=== PATIENT | female | born 1990 | race African-American/Black ===

== ENCOUNTER → 2017-11-11 | Outpatient (CLI) | payer OTHER ==
[2017-11-11 19:24] LABS: Hepatitis C IgG Antibody Non-Reactive (Non-Reactive)
[2017-11-11 20:11] LABS: HIV AB P24 Non-Reactive (Non-Reactive); HIV P24 AG Non-Reactive (Non-Reactive)
== END | disposition home or self-care (01) ==
LOC: LABWHC1 12:31
PROVIDERS: ATTEND Obstetrics & Gynecology
DX: Z11.3 Encounter for screening for infections with a predominantly sexual mode of transmission (principal)
CPT/HCPCS: 36415; 86780; 86803; 87340; 87390

== ENCOUNTER → 2018-07-22 | Outpatient (CLI) | payer OTHER ==
--- NOTE | 2018-07-22 17:23 | MR ---
EXAMINATION TYPE: MR amy/lspine wo con DATE OF EXAM: 07/22/2018 COMPARISON: Cervical spine 09/11/2017 HISTORY: 28-year-old female, neck pain, Cervicalgia /Low back pain TECHNIQUE: Multiplanar, multisequence images of the cervical follow-up of the lumbar spine were obtai haris without IV contrast. FINDINGS: CERVICAL SPINE: Postsurgical changes redemonstrated of occipital decompression for urinary malformation. No tonsillar herniation is seen. Negative predental space widening or prevertebral soft tissue swelling. Straightening of the normal cervical lordosis redemonstrated with variable mild intervertebral disc d esiccation is seen previously. No large focal disc herniation. Scattered mild facet arthropathy is present. No significant spinal canal or neuroforaminal stenosis. Evaluation of the spinal cord demonstrates syrinx with abnormal signal in both hemicords extending fr om the cervical medullary junction down through the visualized thoracic the spinal cord. LUMBAR SPINE: The pet care technician image shows mild reversed S-shaped undulation of the thoracolumbar spine. Vertebral body heights are preserved. Alignment is maintained. No suspicious bone marrow replacement. Conus medullaris terminates at the lower limits of normal at L2-L3. Syrinx terminates at the T11 leve l. Minimal bulging disks throughout the lumbar spine. No significant spinal canal or neural foraminal st enosis. Some of the bulging discs encroach into the inferior aspects of the neuroforamen such as the L4-L5 levels. COMBINED IMPRESSION: CERVICAL SPINE: 1. STABLE POST SURGICAL CHANGES OF OCCIPITAL DECOMPRESSION AND LONG SEGMENT, UNIFORM SYRINX EXTENDING FROM THE CERVICOMEDULLARY JUNCTION DOWN THROUGH THE VISUALIZED THORACIC SPINAL CORD. 2. SIMILAR EARLY DEGENERATIVE DISC DESICCATION. NO SPINAL CANAL OR NEUROFORAMINAL STENOSIS. LUMBAR SPINE: 1. SCATTERED MILD BULGING DISCS. THESE MINIMALLY ENCROACH ONTO THE INFERIOR ASPECT OF THE NEUROFORAME N AT L4-L5 AND L5-S1. NO SIGNIFICANT SPINAL CANAL OR FORAMINAL STENOSIS. 2. SYRINX TERMINATES AT THE T11 LEVEL. CONUS MEDULLARIS IS INCIDENTALLY NOTED TO BE LOW LYING AT L2-L 3.
== END | disposition home or self-care (01) ==
LOC: RADMRIMAIN 10:45
PROVIDERS: ATTEND Psychiatry & Neurology Neurology
DX: M50.80 Other cervical disc disorders, unspecified cervical region (principal); M51.26 Other intervertebral disc displacement, lumbar region; Z98.890 Other specified postprocedural states
CPT/HCPCS: 72141; 72148

== ENCOUNTER → 2018-11-16 | Outpatient (CLI) | payer OTHER ==
[2018-11-16 11:53] VITALS: BP 96/59; PULSE 88; RESP 20; TEMP 96.7; BMI 27.9
--- NOTE | 2018-11-16 12:35 | P.HPOB ---
History of Present Illness H&P Date: 11/16/18 Chief Complaint: The patient is here for her routine gynecologic exam. This is a 28-year-old with an LMP of 11/06/18. The patient has been on TriSprintec for control and states she has done well with these control pills. Her prescription ran out 1 week ago. She states she has not been sexually active for the last 6 months. She has only had one sexual partner during the past year. She is requesting STD screening. She is without gynecologic complaints. Review of Systems The patient's net weight has been stable over the last year. She did lose some weight but has gained it back. She denies respiratory, cardiac, or G.I. problems. : she states she has been urinating fairly frequently but attributes this to increase water intake. She denies urinary urgency or dysuria. Past Medical History Past Medical History: No Reported History, Asthma (Childhood asthma only.) Additional Past Medical History / Comment(s): migraines. Chronic neck and back problems. 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 She has no other history of STDs. One PROM delivery at 27wk 2008 History of Any Multi-Drug Resistant Organisms: None Reported Additional Past Surgical History / Comment(s): Neck/spine surgery with fluid removed 2009. 2 VTPs. Past Psychological History: No Psychological Hx Reported Smoking Status: Light tobacco smoker (Infrequently) Past Alcohol Use History: Occasional (3 per month) Past Drug Use History: None Reported Additional History: She is single and is not seeing anybody at this time. She is currently unemployed. - Past Family History Mother Family Medical History: Liver Disease (Cirrhosis related to alcohol use.) Medications and Allergies Home Medications Medication Instructions Recorded Confirmed Type Naproxen 500 mg PO Q6H PRN 06/11/18 11/16/18 History Norgestimate-Ethinyl Estradiol 1 tab PO DAILY 06/11/18 11/16/18 History [Tri-Sprintec Tablet] Topiramate [Topamax] 50 mg PO BID 11/16/18 11/16/18 History Allergies Allergy/AdvReac Type Severity Reaction Status Date / Time No Known Allergies Allergy Verified 11/16/18 11:31 Exam Vital Signs Temp Pulse Resp BP Pulse Ox 11/16/18 11:34 96.7 F L 88 20 96/59 100 Intake and Output 11/15/18 11/16/18 11/16/18 22:59 06:59 14:59 Other: Weight 67.132 kg Height 5'1", weight 148 pounds, BMI 28.0. This is a well-developed well-nourished black female who is alert and oriented times 3 in no acute distress. HEENT: Within normal limits. NECK: Supple without mass or thyromegaly. CHEST AND LUNGS: Clear to auscultation. HEART: Regular rate and rhythm. BREASTS: Are without mass or discharge. AXILLARY EXAM: Negative for adenopathy. BACK: Negative for CVA tenderness. ABDOMEN: Soft, nontender, without palpable masses. PELVIC EXAM: Normal external genitalia. Cervix and vagina appear normal. There is no unusual discharge. There is no evidence of prolapse. The uterus is midposition, nongravid size and nontender. There are no palpable adnexal masses or tenderness. RECTAL EXAM: negative for mass or tenderness. EXTREMITIES: Nontender. IMPRESSION: 1. 28 year old female with normal gynecologic exam, who has been doing well with oral contraception. 2. The patient is requesting STD screening. PLAN: 1. Pap smear was deferred since she had a normal one on 11/11/2017. 2. Self breast awareness was discussed with the patient. 3. GC and Chlamydia testing was obtained from the cervix. Blood testing will include HIV, RPR, hepatitis B surface antigen, and hepatitis C antibody. This will be drawn today. 4. STD prevention was discussed. I stressed the importance of limiting sexual partners we discussed condom use if she is sexually active. 5. She will resume her Tri-Sprintec in this will be restarted on the Thursday following the onset of her next normal menstrual period. She will use condoms at least through the 1st pack of pills. 6. She will return in one year.
[2018-11-16 20:10] LABS: Hepatitis C IgG Antibody Non-Reactive (Non-Reactive)
[2018-11-16 20:20] LABS: HIV 1 AB Non-Reactive (Non-Reactive); HIV AB P24 Non-Reactive (Non-Reactive); HIV P24 AG Non-Reactive (Non-Reactive)
[2018-11-17 12:42] LABS: C. trachomatis,PCR Negative (Neg,Equiv); Chlamydia trachomatis Source Cervix; N. gonorrhoeae,PCR Negative (Neg,Equiv); Neisseria Source Cervix
== END | disposition home or self-care (01) ==
LOC: WWCWWP 10:47
PROVIDERS: ATTEND Obstetrics & Gynecology
DX: Z11.3 Encounter for screening for infections with a predominantly sexual mode of transmission (principal)
CPT/HCPCS: 36415; 86780; 86803; 87340; 87390; 87491; 87591

== ENCOUNTER → 2019-03-25 | Outpatient (CLI) | payer OTHER ==
--- NOTE | 2019-03-25 14:58 | CT ---
EXAMINATION TYPE: CT abdomen pelvis w con DATE OF EXAM: 03/25/2019 COMPARISON: MR MRI 07/22/2018 HISTORY: Rosa Maria aortic mass seen on MRI. CT DLP: 1184 mGycm Automated exposure control for dose reduction was used. TECHNIQUE: Helical acquisition of images from the lung bases through the pelvis have been completed. CONTRAST: Performed with Oral Contrast and with IV Contrast, patient injected with 100 mL of Isovue M300. FINDINGS: LUNG BASES: No significant abnormality is appreciated. AORTA: No significant abnormality is appreciated. LIVER/GB: No significant abnormality is appreciated. PANCREAS: No significant abnormality is seen. SPLEEN: No significant abnormality is seen. ADRENALS: Left adrenal gland shows a low dense mass as noted on prior MRI measuring approximately 2.8 cm in AP dimension. KIDNEYS: No significant abnormality is seen. REPRODUCTIVE ORGANS: No significant abnormality is seen BOWEL: No significant abnormality is seen. Normal FREE AIR: No Free Air visible. ASCITES: None visible. PELVIC ADENOPATHY: None visualized. RETROPERITONEAL ADENOPATHY: No Retroperitoneal Adenopathy visible. URINARY BLADDER: No significant abnormality is seen. OSSEOUS STRUCTURES: No significant abnormality is seen. IMPRESSION: PROBABLE LEFT ADRENAL ADENOMA. MRI ABDOMEN COULD BE PERFORMED FOR ADDITIONAL EVALUATION OR ALTERNATIV SALOME INTERVAL FOLLOW-UP COULD BE PERFORMED TO ASSESS FOR STABILITY.
== END | disposition home or self-care (01) ==
LOC: RADCTMAIN 12:40
PROVIDERS: ATTEND Internal Medicine
DX: R19.09 Other intra-abdominal and pelvic swelling, mass and lump (principal)
CPT/HCPCS: 74177; Q9967

== ENCOUNTER → 2019-05-02 | Outpatient (CLI) | payer OTHER ==
--- NOTE | 2019-05-02 12:18 | MR ---
MR abdomen with and without contrast or graph history: Left adrenal mass Multiplanar multisequence and postcontrast images through the abdomen following 7 cc Gadavist IV. Correlation to CT scan dated 03/25/2019 The left adrenal mass measures approximately 2.9 cm in greatest AP dimension, there is signal drop on out of phase imaging. The right adrenal gland is unremarkable. There is no retroperitoneal adenopath y. Aorta shows normal caliber. The left adrenal mass does not avidly enhance following contrast administration. Liver as visualized, gallbladder, spleen, pancreas are unremarkable. Lung bases are clear. IMPRESSION: Findings most compatible with left adrenal adenoma.
== END | disposition home or self-care (01) ==
LOC: RADMRIMAIN 10:39
PROVIDERS: ATTEND Internal Medicine
DX: E27.9 Disorder of adrenal gland, unspecified (principal)
CPT/HCPCS: 74183; A9585

== ENCOUNTER → 2019-11-01 | Outpatient (CLI) | payer OTHER ==
[2019-11-01 08:43] VITALS: BP 95/62; PULSE 89; RESP 16; TEMP 98.4
--- NOTE | 2019-11-01 09:54 | P.HPOB ---
History of Present Illness H&P Date: 11/01/19 Chief Complaint: The patient is here for her routine gynecologic exam and recent pain This is a 29-year-old with an LMP of 10/27/2019. She states she had an appointment for her yearly exam today but developed abdominal pain yesterday morning. She states she had not been sexually active for the entire year until about 2-3 weeks ago when she had sex with somebody. She states they did use a condom but it broke. She states she does not think she is since she had a period last week. She states the abdominal pain is sharp and fairly constant. It is greatest when she is walking and not very bothersome when she is sitting still. She denies fever or abnormal discharge. She denies nausea or vomiting. Review of Systems The patient has gained 8 pounds over the last year. She denies respiratory, cardiac, or G.I. problems. She has had abdominal pain as above in the HPI. She denies urinary tract infection symptoms. Past Medical History Past Medical History: No Reported History, Asthma Additional Past Medical History / Comment(s): migraines. Chronic neck and back problems. Past [employer] history: She had trichomonas in the past which was treated. She has no other history of STDs. One PROM delivery at 27wk 2008 History of Any Multi-Drug Resistant Organisms: None Reported Additional Past Surgical History / Comment(s): Neck/spine surgery with fluid removed 2009. 2 VTPs. Past Psychological History: No Psychological Hx Reported Smoking Status: Light tobacco smoker (2 per week) Past Alcohol Use History: Occasional (2 per week) Past Drug Use History: None Reported Additional History: She is single and is not seeing anybody at this time. She is currently unemployed. - Past Family History Mother Family Medical History: Liver Disease Additional Family Medical History / Comment(s): Cirrhosis of the liver related to alcohol use. Medications and Allergies Home Medications Medication Instructions Recorded Confirmed Type Naproxen 500 mg PO Q6H PRN 06/11/18 11/01/19 History Norgestimate-Ethinyl Estradiol 1 tab PO DAILY #84 tablet 11/16/18 11/01/19 Rx [Tri-Sprintec Tablet] Topiramate [Topamax] 50 mg PO BID 11/16/18 11/01/19 History Allergies Allergy/AdvReac Type Severity Reaction Status Date / Time No Known Allergies Allergy Verified 11/01/19 08:44 Exam Vital Signs Temp Pulse Resp BP Pulse Ox 11/01/19 08:35 98.4 F 89 16 95/62 99 Intake and Output 10/31/19 11/01/19 11/01/19 22:59 06:59 14:59 Other: Weight 70.76 kg Height 5 feet 1 inch, weight 156 pounds, BMI 29.5. This is a well-developed well-nourished black female who is alert and oriented times 3 in no acute distress. HEENT: Within normal limits. NECK: Supple without mass or thyromegaly. CHEST AND LUNGS: Clear to auscultation. HEART: Regular rate and rhythm. BREASTS: Are without mass or discharge. AXILLARY EXAM: Negative for adenopathy. BACK: Negative for CVA tenderness. ABDOMEN: Soft, there is mild to moderate generalized abdominal tenderness in both upper and lower quadrants. There is no rebound tenderness. There are 2+ bowel sounds. The abdomen is mildly distended. There are no palpable masses. PELVIC EXAM: Normal external genitalia. Cervix and vagina appear normal with mild to moderate creamy discharge with slight odor. There is positive cervical motion tenderness. There is no evidence of prolapse. The uterus is midposition, nongravid size and moderately tender. There are no palpable adnexal masses, but bilateral moderate tenderness. RECTAL EXAM: Deferred. EXTREMITIES: Nontender. IMPRESSION: 1. 29-year-old female with suspected pelvic inflammatory disease. This is based on her clinical history including new sexual partner, abdominal pain, vaginal discharge, and cervical motion tenderness. 2. Two day history of abdominal pain probably related to pelvic inflammatory disease. PLAN: 1. Pap smear was performed. 2. Self breast awareness was discussed with the patient. 3. GC and Chlamydia testing was obtained from the cervix. Trichomonas antigen testing was obtained from the discharge. 4. Blood tests will include CBC, hCG, HIV, RPR, hepatitis B surface antigen, and hepatitis C antibody. 5. We have discussed the option of inpatient treatment versus outpatient treatment. We have decided to proceed with outpatient treatment with close follow-up. She understands that if she is having increasing symptoms or problems she is to go to the emergency room for evaluation and possible admission to the hospital. Ceftriaxone 250 mg IM 1 today. This will be done at the [facility] on the third floor. Doxycycline 100 mg twice a day 14 days. The electronic prescription will be sent to [facility] pharmacy at [facility]. 6. STD prevention was discussed. I have stressed the importance of limiting sexual partners and to use condoms if she is sexually active. 7. I have made an appointment with her for a follow-up in 3 days on 11/04/2019 at 8:30 AM. 8. She will continue Tri-Sprintec for control. The electronic prescription will be sent to [facility] pharmacy.
[2019-11-01 10:01] LABS: Basophils % (A) 0 %; Eosinophils # (A) 0.2 k/uL (0-0.7); Eosinophils % (A) 1 %; HCT 38.9 % (34.0-46.0); HGB 12.3 gm/dL (11.4-16.0); Lymphocytes # (A) 1.2 k/uL (1.0-4.8); Lymphocytes % (A) 8 %; MCHC 31.6 g/dL (31.0-37.0); MCV 88.7 fL (80.0-100.0); Monocytes # (A) 0.4 k/uL (0-1.0); Monocytes % (A) 3 %; Neutrophils # (A) 13.5 k/uL (1.3-7.7); Neutrophils % (A) 87 %; Platelet Count 275 k/uL (150-450); RBC 4.38 m/uL (3.80-5.40); RDW 13.5 % (11.5-15.5); WBC 15.4 k/uL (3.8-10.6)
[2019-11-01 18:30] LABS: HIV 1 AB Non-Reactive (Non-Reactive); HIV 2 AB Non-Reactive (Non-Reactive); HIV AB P24 Non-Reactive (Non-Reactive); HIV P24 AG Non-Reactive (Non-Reactive)
[2019-11-01 18:52] LABS: Hepatitis B Surface Antigen Non-Reactive (Non-Reactive); Hepatitis C IgG Antibody Non-Reactive (Non-Reactive)
--- NOTE | 2019-11-02 09:34 | P.PN ---
Progress Note - Text Progress Note Date: 11/02/19 OUTPATIENT FOLLOW-UP NOTE TEST(S)/RESULTS: Test results from 11/01/2019 include negative hCG, negative syphilis screen, negative hepatitis be screen, negative hepatitis C screen, negative Trichomonas, and negative HIV testing. White blood cell count was 15.4 with an elevated neutrophil count. Hemoglobin was 12.3. METHOD OF NOTIFICATION: The patient was notified by phone. PATIENT COMMENTS: The patient states she is feeling somewhat better with less abdominal pain. DIAGNOSIS: Pelvic inflammatory disease with improving symptoms. DISCUSSION: GC and chlamydia testing are pending. PLAN: The patient has a follow-up appointment in 2 days for reevaluation.
[2019-11-03 15:02] LABS: C. trachomatis,PCR Negative (Neg,Equiv); Chlamydia trachomatis Source Cervix; N. gonorrhoeae,PCR Positive (Neg,Equiv); Neisseria Source Cervix
== END | disposition home or self-care (01) ==
LOC: WWCWWP 08:24
PROVIDERS: ATTEND Obstetrics & Gynecology
DX: Z11.3 Encounter for screening for infections with a predominantly sexual mode of transmission (principal); N89.8 Other specified noninflammatory disorders of vagina; R10.84 Generalized abdominal pain; N73.9 Female pelvic inflammatory disease, unspecified
CPT/HCPCS: 36415; 84702; 85025; 86780; 86803; 87340; 87390; 87491; 87591; 87808

== ENCOUNTER → 2019-11-01 | Outpatient (CLI) | payer OTHER ==
[~2019-11-01] MED LIST: cefTRIAXone 250 MG VIAL IM NR
[2019-11-01 10:06] VITALS: BP 105/68; PULSE 84; RESP 16; TEMP 97.8
== END | disposition home or self-care (01) ==
LOC: PROCWHC3 09:52
PROVIDERS: ATTEND Obstetrics & Gynecology
DX: N73.9 Female pelvic inflammatory disease, unspecified (principal)
CPT/HCPCS: 96372; J0696

== ENCOUNTER → 2019-11-04 | Outpatient (CLI) | payer OTHER ==
[2019-11-04 08:52] VITALS: BP 104/68; PULSE 70; RESP 16; TEMP 98.3
--- NOTE | 2019-11-04 09:41 | P.PN ---
Progress Note - Text Progress Note Date: 11/04/19 Chief Complaint: Follow-up for pelvic inflammatory disease diagnosed 3 days ago. HPI: This is a 29-year-old with an LMP of 10/27/2019. The patient was seen on 11/01/2019 with acute abdominal and pelvic pain. The patient was diagnosed with pelvic inflammatory disease. She was treated as an outpatient with ceftriaxone and oral doxycycline. She states within 1 day of the initiation of her treatment she was noticing improvement. The pain has continued to decrease and she states she is now pain-free. She did not ever have fever and is tolerating the antibiotics well without side effects. She is no longer with the sexual partner she had about 1 month ago. She states she has notified him that she had a pelvic infection. ROS: She denies fever, respiratory, cardiac, or GI problems. PE: Blood pressure: 104/68, Height: 5 feet 1 inch, Weight: 156 pounds, Temperature: 98.3, Pulse: 70. Pulse oximeter 100%. This is a well developed, well nourished, Black female who is alert and orientedx3, in no acute distress. Abdomen: Soft, nontender without palpable masses. Pelvic exam: Bimanual examination is negative for cervical motion tenderness. The uterus is nongravid size and nontender. There are no palpable adnexal masses or tenderness. Additional studies: White blood cell count was 15.4 with increased neutrophils. HCG was negative. HIV, hepatitis B surface antigen, hepatitis C antibody, and syphilis screening tests were all negative. Trichomonas and chlamydia testing were negative. The patient tested positive for gonorrhea. Impression: 1. Gonorrhea associated pelvic inflammatory disease with significant clinical improvement within 3 days after treatment initiated. Plan: 1. The patient was given ceftriaxone 250 mg IM on 11/01/2019. She was also started on doxycycline 100 mg by mouth twice a day 14 days. She will complete the oral doxycycline. 2. She was instructed to call if she has any problems including fever worsening abdominal pain or problems. 3. I have stressed the importance of protecting herself from sexual transmitted infections and diseases. I have stressed the importance of limiting sexual partners and using condoms if she is sexually active. 4. She states she will notify the sexual partner that she had the encounter with 1 month ago about the diagnosis of gonorrhea. He will be made aware that he needs to be treated for this. 5. She will return in approximately 4 months for retesting for gonorrhea. We will also repeat STD blood testing at that time. Time spent with the patient: 20 minutes
== END | disposition home or self-care (01) ==
LOC: WWCWWP 08:20
PROVIDERS: ATTEND Obstetrics & Gynecology
DX: Z53.9 Procedure and treatment not carried out, unspecified reason (principal)

== ENCOUNTER → 2020-04-03 | Outpatient (CLI) | payer OTHER ==
[2020-04-03 10:30] VITALS: BP 108/71; PULSE 85; RESP 18; TEMP 98.3
--- NOTE | 2020-04-03 11:35 | P.PN ---
Progress Note - Text Progress Note Date: 04/03/20 Chief Complaint: The patient is returning for her recheck following being treated for gonorrhea and PID about 5 months ago. HPI: This is a 30-year-old with an LMP of 03/20/2020. She is on Tri- Sprintec for control. She was treated for PID and gonorrhea on 11/01/2019. She clinically improved rapidly at that time. She has not been sexually active with the person that she believes gave her the gonorrhea and has not seen him since. She states she is only been sexually active one time since then and she states a condom was used. She states that sexual encounter was about 1 month ago and lasted for less than 1 minute. ROS: She denies fever, respiratory, cardiac, or GI problems. : Recently she has noticed that she has to urinate much more frequently and has to void 30 minutes after voiding. She denies dysuria. PE: Blood pressure: 108/71, Height: 5 feet 1-1/2 inches, Weight: 160 pounds, Temperature: 98.3, Pulse: 85. Pulse oximeter 99%. This is a well developed, well nourished, Black female who is alert and orientedx3, in no acute distress. Abdomen: Soft nontender without palpable masses. Pelvic exam: Normal external genitalia. Cervix and vagina appear normal. There is no unusual discharge. There is no cervical motion tenderness. The uterus is mid positioned, nongravid size, and nontender. There are no palpable adnexal masses or tenderness. Impression: 1. 30-year-old female with history of gonorrhea pelvic inflammatory disease in October 2019. No evidence of gonorrhea or pelvic inflammatory disease at this time. 2. Urinary frequency, possible urinary tract infection. Plan: 1. STD prevention was discussed. I have stressed the importance of limiting sexual partners. I have also recommended that she use condoms if she is sexually active. 2. GC and Chlamydia testing was obtained from the cervix. 3. I have recommended repeating blood STD testing including HIV, RPR, hepatitis B surface antigen, and hepatitis C antibody. This was to be done today, however, she states she does not have time to do this and the order slip was given to the patient for this. 4. UA and C&S. The patient states she was unable to void and was not able to give this specimen today. This was included in the order slip and she will return at a later time when she has the blood testing done. 5. She will return to approximate 7 months for her annual examination. She will continue taking control pills as directed. Time spent with the patient: 20 minutes
[2020-04-04 15:04] LABS: C. trachomatis,PCR Negative (Neg,Equiv); Chlamydia trachomatis Source Cervix; N. gonorrhoeae,PCR Negative (Neg,Equiv); Neisseria Source Cervix
== END | disposition home or self-care (01) ==
LOC: WWCWWP 10:04
PROVIDERS: ATTEND Obstetrics & Gynecology
DX: Z11.3 Encounter for screening for infections with a predominantly sexual mode of transmission (principal); A54.24 Gonococcal female pelvic inflammatory disease; N73.9 Female pelvic inflammatory disease, unspecified; R35.0 Frequency of micturition
CPT/HCPCS: 87491; 87591

== ENCOUNTER → 2020-11-14 | Outpatient (CLI) | payer OTHER ==
[2020-11-14 11:40] VITALS: BP 110/71; PULSE 84; RESP 18; TEMP 99.3
--- NOTE | 2020-11-14 12:43 | P.HPOB ---
History of Present Illness H&P Date: 11/14/20 Chief Complaint: The patient is here for her routine gynecologic exam. This is a 30-year-old with an LMP of 10/19/2020. The patient is on Tri-Sprintec for control. She states she does not believe she has been sexually active since she was seen last summer. She was previously treated for GC pelvic inflammatory disease after being diagnosed on 11/01/2019. She had rapid improvement. She was rechecked for gonorrhea and chlamydia on 04/03/2020 and these were negative. She was instructed to have blood STD testing last year, but did not have them done. She would like to continue on control pills even though she is not seeing anybody currently. She has noticed a slight vaginal discharge without pruritus, but may have noticed occasional slight vaginal odor. She has also been experiencing urinary frequency and some urinary urgency without dysuria recently. She has also been experiencing slight nipple tenderness without nipple discharge. Menstrual periods have been regular on oral contraception. Review of Systems The patient has gained 19 pounds over the last year. She denies respiratory, cardiac, or G.I. problems. : See HPI. Past Medical History Past Medical History: Asthma Additional Past Medical History / Comment(s): migraines. Chronic neck and back problems. 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 One PROM delivery at 27wk 2008. History of Any Multi-Drug Resistant Organisms: None Reported Additional Past Surgical History / Comment(s): Neck/spine surgery with fluid removed 2009. 2 VTPs. Past Psychological History: No Psychological Hx Reported Smoking Status: Current every day smoker (1-2 cigarettes per day.) Past Alcohol Use History: Occasional (0-1 per week) Past Drug Use History: None Reported Additional History: The patient is single and is not seeing anybody at this time. She currently does not work outside of the home. - Past Family History Mother Family Medical History: Liver Disease Additional Family Medical History / Comment(s): Cirrhosis of the liver related to alcohol use. Medications and Allergies Home Medications Medication Instructions Recorded Confirmed Type Naproxen 500 mg PO Q6H PRN 06/11/18 11/14/20 History Topiramate [Topamax] 50 mg PO BID 11/16/18 11/14/20 History Norgestimate-Ethinyl Estradiol 1 tab PO DAILY #84 tablet 12/27/19 11/14/20 Rx [Tri-Sprintec Tablet] Allergies Allergy/AdvReac Type Severity Reaction Status Date / Time No Known Allergies Allergy Verified 11/14/20 11:00 Exam Vital Signs Temp Pulse Resp BP Pulse Ox 11/14/20 11:02 99.3 F 84 18 110/71 100 Intake and Output 11/13/20 11/14/20 11/14/20 22:59 06:59 14:59 Other: Weight 79.379 kg Height 5 foot 1 inch, weight 175 pounds, BMI 33.1. This is a well-developed well-nourished black female who is alert and oriented times 3 in no acute distress. HEENT: Within normal limits. NECK: Supple without mass or thyromegaly. CHEST AND LUNGS: Clear to auscultation. HEART: Regular rate and rhythm. BREASTS: Are without mass or discharge. There is mild tenderness around the left nipple. This corresponds with the tenderness she has been experiencing recently. There is no nipple discharge or no palpable masses. There is no erythema around the nipples and the breast tissue is soft. AXILLARY EXAM: Negative for adenopathy. BACK: Negative for CVA tenderness. ABDOMEN: Soft, nontender, without palpable masses. PELVIC EXAM: Normal external genitalia. On the left inner thigh there is an inclusion cyst which she states has been there for many years and this measures 16 x 14 mm. It has a benign appearance. Cervix and vagina appear normal. There is a small amount of jaramillo discharge in the vagina without odor. There is no evidence of prolapse. The uterus is midposition, nongravid size and nontender. There is no cervical motion tenderness. There are no palpable adnexal masses or tenderness. RECTAL EXAM: Negative for mass or tenderness. EXTREMITIES: Nontender. IMPRESSION: 1. 30-year-old female with slight vaginal discharge. The differential diagnosis will include bacterial vaginosis, gonorrhea, chlamydia, Trichomonas, Geraldine or physiologic discharge. 2. Urinary frequency and urgency. This may or may not be related to the slight vaginal discharge and also may represent a urinary tract infection. 3. History of GC PID treated in October of 2019. 4. The patient would like to continue on oral contraception. PLAN: 1. Pap smear was deferred since she had a normal one on 10/24/2019. 2. Self breast awareness was discussed with the patient. 3. Affirm vaginitis panel was obtained from the vagina. 4. GC and Chlamydia testing was obtained from the cervix. 5. Urine will be obtained for UA and C&S. 6. Blood testing will be obtained today for HIV, RPR, hepatitis B surface antigen, and hepatitis C antibody. 7. STD prevention was discussed. I have stressed the importance of limiting sexual partners and sexual activity should replace in a monogamous relationship. I recommended that she use condoms if she is sexually active. 8. She will continue on Tri-Sprintec oral contraception. The electronic prescription will be sent to [facility] pharmacy. 9. Weight control was discussed. I have stressed the importance of good nutrition, regular meals, adequate fiber and regular exercise. 10. She was advised to return in one year for her annual well woman exam and as needed.
[2020-11-14 14:04] LABS: Appearance,Urine Clear (Clear); Bilirubin,Urine Negative (Negative); Blood,Urine Negative (Negative); Color,Urine Yellow; Glucose,Urine (UA) Negative (Negative); Ketones,Urine Negative (Negative); Leukocyte Esterase,Urine Trace (Negative); Mucus,Urine Rare /hpf; Nitrite,Urine Negative (Negative); PH, Urine 5.5 (5.0-8.0); Protein,Urine Negative (Negative); RBC,Urine <1 /hpf (0-5); Specific Gravity,Urine 1.023 (1.001-1.035); Squamous Epithelial Cell,Urine 2 /hpf (0-4); Urobilinogen,Urine <2.0 mg/dL (<2.0); WBC,Urine 1 /hpf (0-5)
[2020-11-14 20:57] LABS: Hepatitis B Surface Antigen Non-Reactive (Non-Reactive); Hepatitis C IgG Antibody Non-Reactive (Non-Reactive)
[2020-11-15 04:13] LABS: Gardnerella Positive (Negative); Source Vagina; Trichomonas Negative (Negative)
--- NOTE | 2020-11-15 12:03 | P.PN ---
Progress Note - Text Progress Note Date: 11/15/20 Test results completed from 11/14/20 include: Affirm testing positive for Gardnerella, negative for Trichomonas, and negative for Geraldine. UA had trace leukocyte esterase, not indicative of romana UTI. HBaAg neg, HCAb neg, and RPR neg. The patient was notified by phone of these results. The patient was complaining of slight vaginal discharge with odor. Imp: Bacterial Vaginosis Plan: metronidazole 500mg BIDPO x 7days. The electronic prescription was sent to [facility]. She was instructed to avoid alcohol while taking the prescription and she say she no longer drinks alcohol. Await GC, chlamydia, urine culture and HIV testing which are pending.
[2020-11-16 11:00] LABS: HIV 2 AB Non-Reactive (Non-Reactive); HIV AB P24 Non-Reactive (Non-Reactive); HIV P24 AG Non-Reactive (Non-Reactive)
== END | disposition home or self-care (01) ==
LOC: WWCWWP 10:42
PROVIDERS: ATTEND Obstetrics & Gynecology
DX: R39.15 Urgency of urination (principal); R35.0 Frequency of micturition; Z11.3 Encounter for screening for infections with a predominantly sexual mode of transmission
CPT/HCPCS: 81001; 86780; 86803; 87086; 87340; 87390; 87480; 87491; 87510; 87591; 87660

== ENCOUNTER 2021-10-02 18:10 | Observation (INO) | payer OTHER ==
--- NOTE | 2021-10-02 18:12 | ED ---
Female Urogenital HPI - General Stated complaint: Vaginal Bleeding Time Seen by Provider: 10/02/21 18:12 - History of Present Illness Initial comments: Louise is a 31yo female believes she has 15-16 weeks presenting to the ER today as a transfer from outside facility. Patient reports that around 3 PM she felt a gush of fluid from her vagina, she then developed some cramping and bleeding. She was seen in an outside facility where she had an ultrasound that revealed there was no amniotic fluid, she had vaginal bleeding with an open cervix and was transferred here for management of an incomplete miscarriage with vaginal bleeding. Upon arrival patient reports she has minimal pain, bleeding is not saturating more than 1 pad per hour. She has no other complaints. Patient is followed with in this - Related Data Home Medications Medication Instructions Recorded Confirmed Naproxen 500 mg PO Q6H PRN 06/11/18 11/14/20 Topiramate [Topamax] 50 mg PO BID 11/16/18 11/14/20 Previous Rx's Medication Instructions Recorded Norgestimate-Ethinyl Estradiol 1 tab PO DAILY #84 tablet 11/14/20 [Tri-Sprintec Tablet] metroNIDAZOLE [Flagyl] 500 mg PO BID 7 Days #14 tab 11/15/20 Allergies Allergy/AdvReac Type Severity Reaction Status Date / Time No Known Allergies Allergy Verified 11/14/20 11:00 Review of Systems ROS Statement: Those systems with pertinent positive or pertinent negative responses have been documented in the HPI. ROS Other: All systems not noted in ROS Statement are negative. Past Medical History Past Medical History: Asthma Additional Past Medical History / Comment(s): migraines. Chronic neck and back problems. 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 One PROM delivery at 27wk 2008. History of Any Multi-Drug Resistant Organisms: None Reported Additional Past Surgical History / Comment(s): Neck/spine surgery with fluid removed 2009. 2 VTPs. Past Psychological History: No Psychological Hx Reported Smoking Status: Current every day smoker (1-2 cigarettes per day.) Past Alcohol Use History: Occasional (0-1 per week) Past Drug Use History: None Reported - Past Family History Mother Family Medical History: Liver Disease Additional Family Medical History / Comment(s): Cirrhosis of the liver related to alcohol use. General Exam - General Exam Comments Initial Comments: Physical Exam GENERAL: Patient is well-developed and well-nourished. Patient is nontoxic and well- hydrated and is in no distress. HENT: Normocephalic, Atraumatic. EYES: PERRL, EOMI PULMONARY: Unlabored respirations. No audible rales rhonchi or wheezing was noted. CARDIOVASCULAR: There is a regular rate and rhythm without any murmurs gallops or rubs. ABDOMEN: Gravid abdomen, painless SKIN: Skin is clear with no lesions or rashes and otherwise unremarkable. : Deferred NEUROLOGIC: Patient is alert and oriented x3. Moving all extremities spontaneously MUSCULOSKELETAL: Normal extremities with adequate strength and full range of motion. No lower extremity swelling or edema. No calf tenderness. PSYCHIATRIC: Flat affect Course Vital Signs 10/02/21 18:45 Temperature 98.0 F Pulse Rate 88 Respiratory 18 Rate Blood Pressure 117/72 O2 Sat by Pulse 100 Oximetry Medical Decision Making - Medical Decision Making Patient was seen and evaluated pelvic exam was completed cervical os is dilated patient is actively bleeding she has not passed heart is again suctioned she did pass some clots in the toilet. Patient in no acute distress. Labs were obtained John was ordered however patient then recalled she was given and has a certificate from previous hospital. Patient care was discussed with OB on-call doctor Gus who recommends admission for expectant management - Lab Data Result diagrams: 10/02/21 18:57 Lab Results 10/02/21 10/02/21 10/02/21 Range/Units 18:57 18:57 18:57 WBC 6.5 (3.8-10.6) k/uL RBC 3.92 (3.80-5.40) m/uL Hgb 11.2 L (11.4-16.0) gm/dL Hct 34.0 (34.0-46.0) % MCV 86.8 (80.0-100.0) fL MCH 28.5 (25.0-35.0) pg MCHC 32.8 (31.0-37.0) g/dL RDW 15.2 (11.5-15.5) % Plt Count 274 (150-450) k/uL MPV 7.7 Neutrophils % 56 % Lymphocytes % 35 % Monocytes % 4 % Eosinophils % 2 % Basophils % 1 % Neutrophils # 3.7 (1.3-7.7) k/uL Lymphocytes # 2.3 (1.0-4.8) k/uL Monocytes # 0.3 (0-1.0) k/uL Eosinophils # 0.1 (0-0.7) k/uL Basophils # 0.0 (0-0.2) k/uL HCG, Quant 82069.5 mIU/mL Blood Type AB Negative Blood Type Recheck No Previous Record Bld Type Recheck Status CABO Indicated Disposition Clinical Impression: Missed Disposition: ADMITTED IP TO THIS HOSP Condition: Stable Is patient prescribed a controlled substance at d/c from ED?: No Referrals: Javier Ferrara MD [Primary Care Provider] - 1-2 days
[2021-10-02 19:10] LABS: Basophils % (A) 1 %; Eosinophils # (A) 0.1 k/uL (0-0.7); Eosinophils % (A) 2 %; HGB 11.2 gm/dL (11.4-16.0); Lymphocytes # (A) 2.3 k/uL (1.0-4.8); Lymphocytes % (A) 35 %; MCH 28.5 pg (25.0-35.0); MCHC 32.8 g/dL (31.0-37.0); MCV 86.8 fL (80.0-100.0); Mean Platelet Volume 7.7; Monocytes # (A) 0.3 k/uL (0-1.0); Monocytes % (A) 4 %; Neutrophils # (A) 3.7 k/uL (1.3-7.7); Neutrophils % (A) 56 %; Platelet Count 274 k/uL (150-450); RBC 3.92 m/uL (3.80-5.40); RDW 15.2 % (11.5-15.5); WBC 6.5 k/uL (3.8-10.6)
[2021-10-02] MEDS ORDERED: NALOXONE 0.4 MG/ML 1 ML VIAL IV PRN (20:36)
[2021-10-02] MEDS ORDERED: Rhogam IMMUNE GLOBULIN 1,500 UNIT/1 ML IM ONE (20:37)
[2021-10-02] MEDS ORDERED: SODIUM CHLORIDE 0.9% 1,000 ML IV SCH (20:45)
--- NOTE | 2021-10-02 21:53 | P.HPOB ---
History of Present Illness H&P Date: 10/02/21 Chief Complaint: Leaking of fluid, vaginal bleeding This patient is a 31-year-old 5 para 1 female estimated date of confinement 03/21/2022 estimated gestational age 15 weeks and 4/7 which was set by an ultrasound done at approximately [address] Villalpando for care. Patient contacted the office apparently earlier today with complaints of bleeding and leaking of fluid and was instructed to go to the emergency department. Patient subsequently went to the [facility] emergency department and verbally indicated that ultrasound showed lack of amniotic fluid and a questionable abruption. Patient was subsequent transferred to [facility] emergency department due to lack of obstetrical care at the other hospital. Patient's records indicate that she had an ultrasound that showed a suspected fibroid but no evidence of subchorionic hemorrhage earlier in the . She did have bleeding at that time and was already given RhoGAM on September 06. Patient began having a gush of fluid and some vaginal bleeding earlier today. Review of Systems Genitourinary: Reports as per HPI, Reports abnormal vaginal bleeding, Reports Past Medical History Past Medical History: Asthma Additional Past Medical History / Comment(s): migraines. Chronic neck and back problems. 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 One PROM delivery at 27wk 2008. History of Any Multi-Drug Resistant Organisms: None Reported Additional Past Surgical History / Comment(s): Neck/spine surgery with fluid removed 2009. 2 VTPs. Past Psychological History: No Psychological Hx Reported Smoking Status: Current every day smoker (1-2 cigarettes per day.) Past Alcohol Use History: Occasional (0-1 per week) Past Drug Use History: None Reported - Past Family History Mother Family Medical History: Liver Disease Additional Family Medical History / Comment(s): Cirrhosis of the liver related to alcohol use. Medications and Allergies Home Medications Medication Instructions Recorded Confirmed Type Naproxen 500 mg PO Q6H PRN 06/11/18 11/14/20 History Topiramate [Topamax] 50 mg PO BID 11/16/18 11/14/20 History Norgestimate-Ethinyl Estradiol 1 tab PO DAILY #84 tablet 11/14/20 Rx [Tri-Sprintec Tablet] metroNIDAZOLE [Flagyl] 500 mg PO BID 7 Days #14 tab 11/15/20 Rx Allergies Allergy/AdvReac Type Severity Reaction Status Date / Time No Known Allergies Allergy Verified 11/14/20 11:00 Exam Vital Signs Temp Pulse Resp BP Pulse Ox 10/02/21 18:45 98.0 F 88 18 117/72 100 Intake and Output 10/02/21 10/02/21 10/02/21 06:59 14:59 22:59 Other: Weight 73.936 kg - OBG Physical Exam Abdomen: bowel sounds normal (Fundal height is consistent with gestational age of 16 weeks and heart tones are auscultated at 155.), no diffuse tendernes s, no bruit present, no guarding noted, no hepatomegaly, no splenomegaly, no mass Uterus: normal size (Uterine fundus is consistent with dates. Limited pelvic exam is done shows scant dark red bleeding. I did not repeat a pelvic exam because she's had 2 pelvic exams thus far today.), normal contour Results Result Diagrams: 10/02/21 18:57 Abnormal Lab Results - Last 24 Hours (Table) 10/02/21 Range/Units 18:57 Hgb 11.2 L (11.4-16.0) gm/dL Assessment and Plan Assessment: This is a 31-year-old 5 para 1 female 15-4/7 weeks gestation who is admitted with what appears to be premature rupture membranes and vaginal bleeding at this time based on Doppler of the baby it is viable. Plan is to check a complete obstetrical ultrasound, admitted for observation and IV antibiotics, and expected management. Patient understands that if there is severe oligohydramnios the prognosis is poor at this time is nonviable. I am going to keep her nothing by mouth in the event she has significant bleeding and is in need of a surgical procedure. Patient does not need RhoGAM. She is already received it. I did have a long discussion with the patient about her clinical diagnosis and plan of care. Patient will be seen by Dr. Villalpando in the morning (1) 15 weeks gestation of Current Visit: Yes Status: Acute Code(s): Z3A.15 - 15 WEEKS GESTATION OF SNOMED Code(s): 9923192 (2) PROM w/onset labor within 24 hours rupture in 2nd trimester Current Visit: Yes Status: Acute Code(s): O42.012 - PRETRM RENETTA ROM, ONSET LABOR W/N 24 HOURS OF RUPT, 2ND TRI SNOMED Code(s): 41867059235962198 (3) Rh negative status during Current Visit: Yes Status: Acute Code(s): O26.899 - OTH RELATED CONDITIONS, UNSPECIFIED TRIMESTER; Z67.91 - UNSPECIFIED BLOOD TYPE, RH NEGATIVE SNOMED Code(s): 379530699
[2021-10-02] MEDS ORDERED: LACTATED RINGERS 1,000 ML IV SCH (23:01)
[2021-10-02] MEDS: ACETAMINOPHEN TAB 325 MG TAB PO PRN (23:23)
--- NOTE | 2021-10-03 00:30 | US ---
EXAMINATION TYPE: US OB limited DATE OF EXAM: 10/03/2021 COMPARISON: None CLINICAL HISTORY: 16weeks PPROM PROM per order. Bleeding. Hx 2 abortions, 1 miscarriage. TECHNIQUE: Transabdominal (TA) GESTATIONAL AGE / DATING Physician Established: (15 weeks/5 days) EDC: 03/21/2022 Dates by LMP: Unknown. Dates by First Scan: This is first scan. Dates by Current Scan: By head measurement (15 weeks/6 days) EDC: 03/20/2022 Not viable. SURVEY IUP: Single PLACENTA: Anterior PREVIA: No Previa JAMARCUS: 3.01 cm Oligohydramnios CERVICAL LENGTH (transabdominal: norm > 3.0cm): tissue appears to be within cervix. BIOMETRY PRESENTATION: head is the only structure visualized near cervix area. Minimal additional tissu e seen within uterus. BPD: 3.08 cm 15 weeks / 5 days HC: 11.85 cm 15 weeks / 6 days HEART RATE: Not seen. IMPRESSION: There is head demonstrated with cephalic presentation and the head size corresponds to 15 weeks . There there was no cardiac activity. There is severe oligohydramnios. demise at approximately 15 weeks and 5 days.
[2021-10-03] MEDS ORDERED: ONDANSETRON 4 MG/2 ML VIAL IVP PRN (03:31)
[2021-10-03] MEDS ORDERED: BUTORPHANOL 1 MG/ML 1 ML VIAL IV PRN (03:31)
[2021-10-03] MEDS ORDERED: DIPHENOX-ATROP 2.5-0.025 MG 1 EACH TAB PO PRN (03:31)
--- NOTE | 2021-10-03 03:38 | P.PROBDLV ---
Vaginal Delivery Note - . Vaginal Delivery Note: Patient was admitted to the floor from the emergency department. Ultrasound performed at that time now showed a nonviable in the lower uterine segment and cervical area. Patient and having cramping spontaneously delivered a nonviable fetus. Inspection of the fetus shows to be probably male without obvious defects. The nurse was present with delivery and did clamp the cord. I examined the patient the placenta still remains. Patient is having some dark red bleeding but nothing significant. Plan now is to premedicate her and give her some Hemabate and attempt to allow the placenta to deliver. Again I rediscuss treatment plan with the patient she understands.
[2021-10-03] MEDS ORDERED: CARBOPROST TROMETHAMINE 250 MCG/ML 1 ML AMP IM SCH (03:45)
--- NOTE | 2021-10-03 05:45 | P.PN ---
Progress Note - Text Progress Note Date: 10/03/21 Patient is premedicated and given one dose of Hemabate. Soon thereafter she spontaneously delivers what appears to be an intact placenta and several dark clots. I did inspect the placenta and there appears to be intact without deficits. Bleeding has markedly subsided. Patient is having some gastrointestinal symptoms from the Hemabate but otherwise feeling well. Plan is to continue to observe, allow her to eat breakfast and most likely will be discharged home by Dr. Villalpando later this morning if her bleeding continues to be good.
[2021-10-03 06:31] VITALS: RESP 16
[2021-10-03 07:41] LABS: Basophils % (A) 0 %; Eosinophils % (A) 0 %; HCT 29.1 % (34.0-46.0); Lymphocytes # (A) 0.9 k/uL (1.0-4.8); Lymphocytes % (A) 9 %; MCH 28.6 pg (25.0-35.0); MCHC 32.3 g/dL (31.0-37.0); MCV 88.8 fL (80.0-100.0); Mean Platelet Volume 8.4; Monocytes # (A) 0.5 k/uL (0-1.0); Monocytes % (A) 5 %; Neutrophils # (A) 9.2 k/uL (1.3-7.7); Neutrophils % (A) 85 %; Platelet Count 212 k/uL (150-450); RBC 3.28 m/uL (3.80-5.40); WBC 10.8 k/uL (3.8-10.6)
[2021-10-03 07:46] LABS: HGB 9.4 gm/dL (11.4-16.0)
[2021-10-03 08:25] VITALS: BP 110/72; PULSE 85; TEMP 97.8
[2021-10-03] MEDS: ACETAMINOPHEN TAB 325 MG TAB PO PRN (08:33)
--- NOTE | 2021-10-03 08:41 | P.DS ---
Providers Date of admission: 10/02/21 20:38 Expected date of discharge: 10/03/21 Attending physician: Rosie Villalpando Primary care physician: Alem Herrera [facility] Course: This is a 31-year-old female 5 who presented with complaints of vaginal bleeding and cramping. She went to [facility] and was transferred to [facility]. She delivered a nonviable fetus at approximately 15-16 weeks and then required Hemabate for placental delivery. Her bleeding did slow quite a bit after this time and has been minimal to moderate since delivery. She states her abdomen is slightly tender from everybody rubbing on her abdomen. She is having no difficulty with urination at this time. She is hungry. She will be discharged home after breakfast. She did receive RhoGAM already and is not required at this time. She will be sent home on Keflex as a precaution. She is advised follow-up in the office in approximately 6 weeks for a check. She is also given a prescription for ibuprofen. She is advised to call the office or return to the hospital if she has any severe pain, increasing bleeding with large clots, or fevers. Patient Condition at Discharge: Stable Plan - Discharge Summary New Discharge Prescriptions: New Ibuprofen [Motrin] 600 mg PO Q6HR PRN #30 tab PRN Reason: Pain Cephalexin [Keflex] 500 mg PO Q6HR 7 Days #28 cap No Action 27-0.8mg 1 tab PO DAILY Discharge Medication List 27-0.8mg 1 tab PO DAILY 10/02/21 [History] Cephalexin [Keflex] 500 mg PO Q6HR 7 Days #28 cap 10/03/21 [Rx] Ibuprofen [Motrin] 600 mg PO Q6HR PRN #30 tab 10/03/21 [Rx] Follow up Appointment(s)/Referral(s): Javier Ferrara MD [Primary Care Provider] - 1-2 days Rosie Villalpando DO [Doctor of Osteopathic Medicine] - 6 Weeks Activity/Diet/Wound Care/Special Instructions: Activity as tolerated. Diet as tolerated. May shower but no tub baths for the next 2 weeks. Return to the emergency room if heavy bleeding, high fevers, or severe pain. No intercourse. Discharge Disposition: HOME SELF-CARE
== END 2021-10-03 12:10 | disposition home or self-care (01) ==
LOC: EC 18:10 → 4FBP 20:38
PROVIDERS: ADMIT Obstetrics & Gynecology; ATTEND Obstetrics & Gynecology
DX: O02.1 Missed abortion (principal); O42.912 Preterm premature rupture of membranes, unspecified as to length of time between rupture and onset of labor, second trimester; O26.892 Other specified pregnancy related conditions, second trimester; Z67.91 Unspecified blood type, Rh negative; O99.52 Diseases of the respiratory system complicating childbirth; J45.909 Unspecified asthma, uncomplicated; G43.909 Migraine, unspecified, not intractable, without status migrainosus; O99.334 Smoking (tobacco) complicating childbirth; F17.210 Nicotine dependence, cigarettes, uncomplicated; Z79.899 Other long term (current) drug therapy; Z3A.15 15 weeks gestation of pregnancy; Z86.19 Personal history of other infectious and parasitic diseases; Z83.79 Family history of other diseases of the digestive system; O41.1420 Placentitis, second trimester, not applicable or unspecified; Z37.1 Single stillbirth; G89.29 Other chronic pain; M54.9 Dorsalgia, unspecified; M54.2 Cervicalgia; Z71.9 Counseling, unspecified
CPT/HCPCS: 59409; 96365; 96372; 96375; 99284; 36415; 86900; 86901; 88305; 85025 ×2; 86850; 86870; 86880; 84702; 88300; 87635; 76815; G0378 ×2; J2405; J0690

== ENCOUNTER → 2022-04-23 | Outpatient (CLI) | payer OTHER ==
[2022-04-23 10:46] VITALS: BP 95/60; PULSE 84; RESP 17; TEMP 98.7
--- NOTE | 2022-04-23 12:00 | P.HPOB ---
History of Present Illness H&P Date: 04/23/22 Chief Complaint: The patient is here for her routine gynecologic exam. This is a 32-year-old with an LMP of 04/04/2022. The patient has been experiencing slight vaginal discharge which is creamy and she notices a slight odor. She is otherwise without gynecologic complaints. She states she had a miscarriage in September 2021. She was not taking control prior to that , but would like to start control pills again at this time. She states she has not been sexually active since July 2021. She is not seeing anybody at this time. Review of Systems The patient has lost 13 pounds over the last year. She denies respiratory, cardiac, or G.I. problems. Past Medical History Past Medical History: Asthma Additional Past Medical History / Comment(s): migraines. Chronic neck and back problems. 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 One PROM delivery at 27wk 2008. History of Any Multi-Drug Resistant Organisms: None Reported Additional Past Surgical History / Comment(s): Neck/spine surgery with fluid removed 2009. 2 VTPs. Past Anesthesia/Blood Transfusion Reactions: No Reported Reaction Past Psychological History: No Psychological Hx Reported Smoking Status: Former smoker Past Alcohol Use History: Heavy (Quit drinking alcohol in December 2021.) Additional Past Alcohol Use History / Comment(s): Quit smoking and alcohol use in December 2021. 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 Past Drug Use History: None Reported Additional History: The patient is single and is not seeing anybody at this time. She does not currently work outside of the home. - Past Family History Mother Family Medical History: Liver Disease Additional Family Medical History / Comment(s): Cirrhosis of the liver related to alcohol use. Medications and Allergies Home Medications Medication Instructions Recorded Confirmed Type Ibuprofen [Motrin] 600 mg PO Q6HR PRN #30 tab 10/03/21 04/23/22 Rx Naltrexone Microspheres [Vivitrol] 1 injection SQ QMONTHLY 04/23/22 04/23/22 History Allergies Allergy/AdvReac Type Severity Reaction Status Date / Time No Known Allergies Allergy Verified 04/23/22 10:41 Exam Vital Signs Temp Pulse Resp BP Pulse Ox 04/23/22 10:43 98.7 F 84 17 95/60 98 Intake and Output 04/22/22 04/23/22 04/23/22 22:59 06:59 14:59 Other: Weight 73.482 kg Height 5 foot 1 inch, weight 162 pounds, BMI 30.6. This is a well-developed well-nourished black female who is alert and oriented times 3 in no acute distress. HEENT: Within normal limits. NECK: Supple without mass or thyromegaly. CHEST AND LUNGS: Clear to auscultation. HEART: Regular rate and rhythm. BREASTS: Are without mass or discharge. AXILLARY EXAM: Negative for adenopathy. BACK: Negative for CVA tenderness. ABDOMEN: Soft, nontender, without palpable masses. PELVIC EXAM: Normal external genitalia. Cervix and vagina appear normal . There is a creamy whitish discharge without significant odor. There is no evidence of prolapse. The uterus is midposition, nongravid size and nontender. There is no cervical motion tenderness. There are no palpable adnexal masses or tenderness. RECTAL EXAM: negative for mass or tenderness . EXTREMITIES: Nontender. IMPRESSION: 1. 32-year-old female with normal gynecologic exam. 2. Vaginal discharge. Differential diagnosis will include bacterial vaginosis, trichomonas, gonorrhea, and chlamydia. 3. The patient is requesting to restart control pills. PLAN: 1. Pap smear cotest was performed. 2. Self breast awareness was discussed with the patient. We have also discussed symptoms associated with inflammatory breast cancer. 3. Affirm vaginitis panel was obtained from the vagina. GC and Chlamydia testing was obtained from the cervix. The patient had blood STD screening in July 2021 and states she has not been sexually active since that time and is declining blood STD testing. 4. We have had a long discussion regarding oral contraception. We've discussed possible risks including the risk of clots, DVT, PE, [place], and CVA with oral contraception. She understands that cigarette use can increase the risk for these things and I have recommended that she continue to not smoke we have also discussed common side effects. I have stressed the importance of starting them at the proper time and taking them about the same time every day. She will be started on Tri-Sprintec one daily. She will start this on the first Thursday after the onset of her next normal menstrual period. She will use condoms or abstinence through the first pack of pills. The electronic prescription will be sent to [facility] ([facility] with [facility]). I have also recommended that she take a daily multivitamin with folic acid. 5. STD prevention was discussed. I have stressed the importance of limiting sexual partners and condom use, if she is sexually active. 6. She was advised to return in one year for her annual well woman exam and as needed.
[2022-04-24 12:29] LABS: C. trachomatis,PCR Negative (Neg,Equiv); Chlamydia trachomatis Source Cervix; N. gonorrhoeae,PCR Negative (Neg,Equiv); Neisseria Source Cervix
[2022-04-24 13:18] LABS: Gardnerella Positive (Negative); Source Cervix; Trichomonas Negative (Negative)
--- NOTE | 2022-04-24 14:54 | P.PN ---
Progress Note - Text Progress Note Date: 04/24/22 Test results from 04/23/22 include: +Gardnerella, negative trichomonas, negative mango, negative chlamydia, and negative gonorrhea. The patient was notified by phone, Impression: Bacterial vaginosis Plan: metronidazole 500mg PO BID x 7d. The electronic prescription will be sent to [facility],
== END | disposition home or self-care (01) ==
LOC: WWCWWP 10:36
PROVIDERS: ATTEND Obstetrics & Gynecology
DX: Z01.419 Encounter for gynecological examination (general) (routine) without abnormal findings (principal); N89.8 Other specified noninflammatory disorders of vagina
CPT/HCPCS: 87480; 87491; 87510; 87591; 87660

== ENCOUNTER 2022-07-07 14:40 | Emergency (ER) | payer OTHER ==
--- NOTE | 2022-07-07 15:09 | ED ---
General Adult HPI - General Chief complaint: Abdominal Pain Stated complaint: ABD Pain Time Seen by Provider: 07/07/22 14:50 Source: patient, RN notes reviewed, old records reviewed Mode of arrival: ambulatory Limitations: no limitations - History of Present Illness Initial comments: 32-year-old female presents to the emergency room with complaints of pelvic pain with vaginal bleeding for the past 2 days. Patient states that she had some vaginal bleeding and vaginal discomfort a couple of weeks ago was seen at [facility] she states that they gave her some type of medication but doesn't remember what or why. She states she is having unprotected sex but denies any vaginal discharge. Has not had sexual intercourse since taking medication provided by [facility]. States that she could be . -: days(s) (2) Location: pelvis Radiation: non-radiation Severity scale (1-10): 5 Consistency: intermittent Associated Symptoms: other (vaginal bleeding) Treatments Prior to Arrival: none - Related Data Home Medications Medication Instructions Recorded Confirmed Naltrexone Microspheres [Vivitrol] 1 injection SQ QMONTHLY 04/23/22 04/23/22 Previous Rx's Medication Instructions Recorded Ibuprofen [Motrin] 600 mg PO Q6HR PRN #30 tab 10/03/21 norgestimate-ethinyl estradioL 1 tablet PO DAILY #84 tablet 04/23/22 [Tri-Sprintec Tablet] metroNIDAZOLE 500 mg PO BID 7 Days #14 tablet 04/24/22 Allergies Allergy/AdvReac Type Severity Reaction Status Date / Time No Known Allergies Allergy Verified 04/23/22 10:41 Review of Systems ROS Statement: Those systems with pertinent positive or pertinent negative responses have been documented in the HPI. ROS Other: All systems not noted in ROS Statement are negative. Past Medical History Past Medical History: Asthma Additional Past Medical History / Comment(s): migraines. Chronic neck and back problems. 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 One PROM delivery at 27wk 2008. History of Any Multi-Drug Resistant Organisms: None Reported Additional Past Surgical History / Comment(s): Neck/spine surgery with fluid removed 2009. 2 VTPs. Past Anesthesia/Blood Transfusion Reactions: No Reported Reaction Past Psychological History: No Psychological Hx Reported Smoking Status: Former smoker Past Alcohol Use History: Heavy Past Drug Use History: None Reported - Past Family History Mother Family Medical History: Liver Disease Additional Family Medical History / Comment(s): Cirrhosis of the liver related to alcohol use. General Exam Limitations: no limitations General appearance: alert, in no apparent distress Head exam: Present: atraumatic Eye exam: Absent: scleral icterus, conjunctival injection Respiratory exam: Absent: respiratory distress, accessory muscle use Cardiovascular Exam: Present: regular rate GI/Abdominal exam: Present: soft. Absent: distended, tenderness, guarding, rebound, rigid External exam: Present: normal external exam. Absent: erythema, swelling, lacerations Speculum exam: Present: normal speculum exam, vaginal bleeding (small amount). Absent: erythema, vaginal discharge, cervical discharge, foreign body, tissue, laceration By manual exam: Present: normal by manual exam. Absent: cervical motion tenderness, adnexal tenderness, adnexal mass Extremities exam: Present: normal inspection, normal capillary refill. Absent: pedal edema Neurological exam: Present: alert, oriented X3, normal gait Psychiatric exam: Present: normal affect, normal mood Skin exam: Present: warm, dry, normal color. Absent: cyanosis, diaphoretic, petechiae, pallor Course Vital Signs 07/07/22 14:42 Temperature 98.2 F Pulse Rate 88 Respiratory 16 Rate Blood Pressure 120/70 O2 Sat by Pulse 99 Oximetry Medical Decision Making - Medical Decision Making Patient presents with pelvic pain and vaginal bleeding for the past couple of days. Did have palpable pain couple weeks ago was seen at [facility] which she does not remember what. Pelvic exam revealed minimal bleeding from the cervix. No erythema, lesions or cervical discharge. No cervical motion tenderness. Abdomen soft and nontender. Urinalysis shows no evidence of infection, negative for . Vaginal cultures were sent for STI testing. Vital signs stable. Patient is afebrile. Dr. Luna at bedside, patient requesting be treated for STI. Trichomonas is negative therefore patient was given Zithromax and Rocephin only. She was instructed to call for culture results and always practice safe sex wearing a condom with every sexual encounter. - Lab Data Lab Results 07/07/22 07/07/22 07/07/22 Range/Units 15:41 15:41 15:41 Urine Color Yellow Urine Appearance Cloudy H (Clear) Urine pH 6.0 (5.0-8.0) Ur Specific [place] 1.027 (1.001-1.035) Urine Protein Trace H (Negative) Urine Glucose (UA) Negative (Negative) Urine Ketones Negative (Negative) Urine Blood Large H (Negative) Urine Nitrite Negative (Negative) Urine Bilirubin Negative (Negative) Urine Urobilinogen 2.0 (<2.0) mg/dL Ur Leukocyte Esterase Negative (Negative) Urine RBC 1 (0-5) /hpf Urine WBC 2 (0-5) /hpf Ur Squamous Epith Cells 7 H (0-4) /hpf Amorphous Sediment Rare H (None) /hpf Urine Mucus Many H (None) /hpf Urine HCG, Qual Not Detected (Not Detectd) Trichomonas Ag (Rapid) Negative (Negative) Disposition Clinical Impression: Pelvic pain Disposition: HOME SELF-CARE Condition: Good Instructions (If sedation given, give patient instructions): Pelvic Pain in Women (ED) Additional Instructions: Please practice safe sex, have partner wear a condom with every sexual encounter. Call in 72 hours for culture results. Return to the emergency room with any new or concerning symptoms. Is patient prescribed a controlled substance at d/c from ED?: No Referrals: Buzz Tong MD [Primary Care Provider] - 1-2 days Time of Disposition: 16:28
[2022-07-07 16:17] LABS: Amorphous Sediment,Urine Rare /hpf; Appearance,Urine Cloudy (Clear); Bilirubin,Urine Negative (Negative); Blood,Urine Large (Negative); Color,Urine Yellow; Glucose,Urine (UA) Negative (Negative); Ketones,Urine Negative (Negative); Leukocyte Esterase,Urine Negative (Negative); Mucus,Urine Many /hpf; Nitrite,Urine Negative (Negative); Protein,Urine Trace (Negative); RBC,Urine 1 /hpf (0-5); Specific Gravity,Urine 1.027 (1.001-1.035); Squamous Epithelial Cell,Urine 7 /hpf (0-4); WBC,Urine 2 /hpf (0-5)
[2022-07-07] MEDS ORDERED: cefTRIAXone 1,000 MG VIAL (IM USE) IM STA (16:26)
[2022-07-07] MEDS ORDERED: AZITHROMYCIN 500 MG TAB PO STA (16:26)
[2022-07-07 17:16] VITALS: BP 129/73; PULSE 78; RESP 18; TEMP 97.6
[2022-07-09 09:43] LABS: Chlamydia trachomatis rRNA Not detected (Not detected); Neisseria Source Vaginal; Neisseria gonorrhoeae rRNA Not detected (Not detected)
== END 2022-07-07 17:16 | disposition home or self-care (01) ==
LOC: EC 14:40
DX: R10.2 Pelvic and perineal pain (principal); Z87.891 Personal history of nicotine dependence
CPT/HCPCS: 99284; 87491; 81001; 81025; 87808; 96372; J0696

== ENCOUNTER → 2023-09-22 | Outpatient (CLI) | payer OTHER ==
[2023-09-22 16:49] LABS: Hepatitis B Surface Antigen Nonreactive; Hepatitis C IgG Antibody Nonreactive
[2023-09-22 18:31] LABS: HIV 2 AB Non-Reactive (Non-Reactive); HIV AB P24 Non-Reactive (Non-Reactive); HIV P24 AG Non-Reactive (Non-Reactive)
== END | disposition home or self-care (01) ==
LOC: LABWHC1 11:54
PROVIDERS: ATTEND Obstetrics & Gynecology
DX: Z11.3 Encounter for screening for infections with a predominantly sexual mode of transmission (principal)
CPT/HCPCS: 36415; 86780; 86803; 87340; 87390

== ENCOUNTER → 2023-09-22 | Outpatient (CLI) | payer OTHER ==
[2023-09-22 11:37] VITALS: BP 131/84; PULSE 87; RESP 18; TEMP 98.5
--- NOTE | 2023-09-22 12:06 | P.HPOB ---
History of Present Illness H&P Date: 09/22/23 Chief Complaint: The patient is here for her routine gynecologic exam. This is a 33-year-old with an LMP of 09/22/2023. The patient has been using condoms and has had a new sexual partner during the past 2 months. She states he has been her only sexual partner during this past year. She is experiencing vulvar irritation which is not severe. She also has noticed a slight clear discharge which is a little thicker than water. She also has noticed a slight odor. This has been going on for about 2 days. Review of Systems She has lost about 8 pounds over the past year. She denies respiratory or cardiac problems. GI: Slight constipation. Past Medical History Past Medical History: Asthma Additional Past Medical History / Comment(s): migraines. Chronic neck and back problems. 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 One PROM delivery at 27wk 2008. History of Any Multi-Drug Resistant Organisms: None Reported Additional Past Surgical History / Comment(s): Neck/spine surgery with fluid removed 2009. 2 VTPs. Past Anesthesia/Blood Transfusion Reactions: No Reported Reaction Past Psychological History: No Psychological Hx Reported Smoking Status: Former smoker, Vaper (Not every day.) Past Alcohol Use History: Occasional (About 1. of liquor per week.) Additional Past Alcohol Use History / Comment(s): Quit smoking December 2021. 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 Past Drug Use History: None Reported Additional History: The patient is single and has been with her sexual partner since July 2023. He lives out of town. She currently does not work outside of the home. - Past Family History Mother Family Medical History: Liver Disease Additional Family Medical History / Comment(s): Cirrhosis of the liver related to alcohol use. Medications and Allergies Home Medications Medication Instructions Recorded Confirmed Type Ibuprofen [Motrin] 600 mg PO Q6HR PRN #30 tab 10/03/21 09/22/23 Rx Allergies Allergy/AdvReac Type Severity Reaction Status Date / Time No Known Allergies Allergy Verified 09/22/23 10:59 Exam Vital Signs Temp Pulse Resp BP Pulse Ox 09/22/23 11:08 98.5 F 87 18 131/84 100 Intake and Output 09/21/23 09/22/23 09/22/23 22:59 06:59 14:59 Other: Weight 69.853 kg Height 5 feet 0 inches, weight 154 pounds, BMI 30.1. This is a well-developed well-nourished black female who is alert and oriented times 3 in no acute distress. HEENT: Within normal limits. NECK: Supple without mass or thyromegaly. CHEST AND LUNGS: Clear to auscultation. HEART: Regular rate and rhythm. BREASTS: Are without mass or discharge. AXILLARY EXAM: Negative for adenopathy. BACK: Negative for CVA tenderness. ABDOMEN: Soft, nontender, without palpable masses. PELVIC EXAM: Normal external genitalia. There is no significant erythema, ulceration, or excoriation. Cervix and vagina appear normal with some menstrual type blood in the vagina. There is no cervical motion tenderness. There is fairly remarkable odor noted. There is no unusual discharge. There is no evidence of prolapse. The uterus is midposition, nongravid size and nontender. There are no palpable adnexal masses or tenderness. RECTAL EXAM: Deferred. EXTREMITIES: Nontender. IMPRESSION: 1. 33-year-old female a 2 day history of vulvar irritation, slight vaginal discharge, and vaginal odor. 2. Vaginal odor on exam today. Differential diagnosis will include bacterial vaginosis and Trichomonas. Other possibilities will include gonorrhea and chlamydia. PLAN: 1. Pap smear was deferred since she had a negative Pap smear coated test on 04/23/2022. 2. Self breast awareness was discussed with the patient. 3. Affirm vaginitis panel was obtained from the vagina. GC and Chlamydia testing was obtained from the cervix. 4. STD prevention was discussed. I have stressed the importance of limiting sexual partners. Also recommended that she use condoms every time if she is sexually active. 5. Blood STD testing will include HIV, RPR, hepatitis B surface antigen, and hepatitis C antibody. 6. The patient will be treated empirically with metronidazole 500 mg by mouth twice a day 7 days. We've discussed how drinking alcohol while on this medication can cause significant nausea. She states she will avoid alcohol while she takes this medication. The electronic prescription will be sent to [facility]. 7. She was advised to return in one year for her annual well woman exam and as needed.
[2023-09-23 11:32] LABS: Gardnerella Negative (Negative); Trichomonas Negative (Negative)
== END ==
LOC: WWCWWP 10:54
PROVIDERS: ATTEND Obstetrics & Gynecology
DX: Z11.3 Encounter for screening for infections with a predominantly sexual mode of transmission (principal); N89.8 Other specified noninflammatory disorders of vagina; F17.290 Nicotine dependence, other tobacco product, uncomplicated; J45.909 Unspecified asthma, uncomplicated; G43.909 Migraine, unspecified, not intractable, without status migrainosus; Z87.39 Personal history of other diseases of the musculoskeletal system and connective tissue
CPT/HCPCS: 87480; 87491; 87510; 87591; 87660